=== PATIENT | female | born 1975 | race Caucasian/White ===

== ENCOUNTER 2016-11-24 06:11 | Day surgery (SDC) | payer OTHER ==
[~2016-11-24] VITALS: Ht 170.2 cm; Wt 104.3 kg
--- NOTE | ~2016-11-24 | O ---
[facility] [place] [address] OPERATIVE REPORT Name: ROLAN GONZALES Room #: 427-P [facility]#: [id number] Admission: 11/24/16 Attend Phys: Stephen Peralta MD Discharge: Date of : 71 Report #: [id number] THIS REPORT FOR: //name// CC: Krystyna Peralta DATE OF SERVICE: 11/24/2016 PREOPERATIVE DIAGNOSIS: Chronic incarcerated incisional hernia. POSTOPERATIVE DIAGNOSES: Complex multiple incisional hernia with incarceration of transverse colon and intra-abdominal adhesions. PROCEDURES PERFORMED: Laparoscopic repair of incarcerated incisional hernia. ANESTHESIA: General. SURGEON: Stephen Peralta M.D. COMPLICATIONS: None. ESTIMATED BLOOD LOSS: 20 mL. PROCEDURE NOTE: With the patient under general anesthesia, a Keith catheter was placed, IV antibiotic was administered. Abdomen was prepped and draped in sterile fashion. A sterile Vi-Drape was used. A cutdown incision was made in the left abdomen. This is along the lateral edge of the rectus muscle. Incision was carried down to the anterior rectus sheath, this was soon identified and incised, it was difficult to reach because of the depth, but this was able to be opened under visualization, 0 Vicryl suture placed on the fascia edges. With the fascia lifted anteriorly, muscle was spread. The posterior sheath was then able to be identified and grasped. The posterior sheath was opened and stay sutures was placed on the posterior sheath. Veress needle was then placed through peritoneum. Abdominal cavity was insufflated by CO2. After creating pneumoperitoneum pressure of 15, an 11 mm trocar was placed under visualization. This had a balloon tip. This was placed into the pneumoperitoneum without difficulty. Under visualization, a 5 mm trocar was placed in the left upper quadrant laterally. A second 5 mm trocar was placed in the left lower quadrant lateral to the inferior epigastric vessels. The inferior epigastric vessel was preserved from harm. Right adjacent to the trocars, there are omental adhesions. These omental adhesions were taken down. I can see the colon draping transverse colon coming up into the wall and care was taken to avoid the colon. The adhesions were taken lateral superior inferiorly from the hernia that contained the colon and this is the larger defect, there were multiple smaller defects found. This is a [place] cheese abdominal wall. The colon was able to be mobilized out of the hernia sac and [facility] [address] [place] [address] OPERATIVE REPORT Name: ROLAN GONZALES Room #: 427-P [facility]..#: [id number] Admission: 11/24/16 Attend Phys: Stephen Peralta MD Discharge: Date of : 71 Report #: [id number] then brought back down. A Harmonic scalpel was used for the dissection and when I got closer to the colon, a scissor was used to dissect the adhesions down to avoid using any energy instrument. Once the omentum was taken down, the colon was then from the wall and able to be taken off the hernia sac without difficulty. The colon was visualized. There was no harm to the colon. The entire abdominal wall was opened very right lateral abdomen. Also, the liver was stuck, the medial aspect of the liver was stuck and I did not try to free that up. The defect was measured and measured about 15 cm, again multiple defects were found through the wall with two larger one's in the mid abdomen. A Ventralight ST mesh was used with echo technology. It showed the 7 x 9 inch, which is 17 x 22 cm. The balloon trocar was removed. The Ventralight was then placed through the abdominal wall opening here and the cutdown side. The mesh opened up well. A suture retrieval was placed that the midpoint of the fascial defect and the balloon tubing was brought out. The balloon channel of the echo was then inflated. This allowed the mesh to open up. The mesh was then seated properly, the mesh was then seated well covering the entire defect and extended laterally from it, the distance inferior is about 4 cm between the edge to the defect. This was below the umbilicus, about an inch and a half below the umbilicus. The mesh was tacked with SorbaFix. A 30 and then a 15 SorbaFix was used. I went ahead and placed a two 5 mm trocar in the right abdomen. These were placed under visualization. This allowed me to tack the left side of the mesh. Transfascial sutures were then placed at the 12, 3, 6, 9 o'clock position. The [place]-Lance suture was used. A suture retrieval needle was used to go through the skin and then through the abdominal wall. This was grabbed one into the stitch and then this same needle was placed through the same skin incision through a different part of the abdominal wall and through the mesh and the other end of the suture was brought out and the knot was tied. The other positions were done exact same manner. The patient tolerated procedure well. The procedure was then terminated. The omentum is dry. The CO2 was evacuated. Trocars removed with evacuation of CO2 as much as possible. At the cutdown side, the posterior sheath was closed with [id number] 0 PDS. The anterior fascia defect was closed with [id number] 0 PDS x 3. Skin was irrigated. Skin was closed with 5-0 PDS subcuticular fashion. The skin was brought further together with Dermabond at all the incision sites and all of the transfascial suture sites. Band-Aids were applied. The patient was awakened and taken to recovery room. By: [id number] Stephen Peralta MD /nt
--- NOTE | ~2016-11-24 | H ---
[facility] [place] [address] HISTORY AND PHYSICAL Name: ROLAN GONZALES Room #: PRE [facility]#: [id number] Admission: Attend Phys: Stephen Peralta MD Discharge: Date of : 71 Report #: [id number] THIS REPORT FOR: //name// CC: Krystyna Peralta PREOPERATIVE DIAGNOSIS: Multiple incisional hernias, here for repair. HISTORY OF PRESENT ILLNESS: The patient is a 41-year-old who noticed a lump in the abdomen a few months ago. In the last 6 weeks, it has become larger and more uncomfortable. 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 The patient underwent a modified Whipple procedure in [place] in 2010. This was performed through the upper midline incision. Unfortunately, the patient is still having symptoms of pancreatitis. The current discomfort is different. It is located more on the left side of the midline, associated with nausea. No vomiting, no bloating. The pain comes and goes. The symptoms are noticeable when she sits up for too long or if she lies down for too long, she has to get up and pace around. She does feel gurgling in the abdomen with the bulges. No cramping, bubbly feeling. The patient did try using a binder, but that made her nausea worse. Her bowels are not changed. The patient was evaluated by Dr. Krystyna Ziegler and had a CT performed. CT scan shows the pancreas and peripancreatic tissue appearing normal. She has incisional hernia in the midline, slightly left to the midline. It measures 4.6 x 5.3 x 6.1 cm. There is transverse colon herniated through this. The colon is not inflamed looking. There is another hernia, more cephalad and measures 2.6 x 2.5 cm. The patient is recommended to undergo repair of the incisional hernias since she is symptomatic. PAST MEDICAL HISTORY: Chronic pancreatitis, migraine headache and borderline diabetes. PAST SURGICAL HISTORY: Appendectomy in 2000, gallbladder in 2010, ERCP stent, bile duct stent and modified Whipple in 2010. MEDICATIONS: Phenergan, methadone 60 mg 3 times a day and iron. ALLERGIES: She is not allergic to anything. FAMILY HISTORY: Diabetes and migraine, also abdominal issues. SOCIAL HISTORY: The patient is disabled from her bouts of pancreatitis. She does not smoke or drink. REVIEW OF SYSTEMS: No chest pain, shortness of breath or palpitation. PHYSICAL EXAMINATION: [address] [address] HISTORY AND PHYSICAL Name: ROLAN GONZALES Room #: PRE [facility]..#: [id number] Admission: Attend Phys: Stephen Peralta MD Discharge: Date of : 71 Report #: [id number] GENERAL: The patient is obese. The patient is alert and oriented. No acute distress. HEENT: Pupils react to light. Sclerae are nonicteric. NECK: Soft and supple. No masses. No JVD. LUNGS: Clear to auscultation. HEART: Regular rate and rhythm. No murmur or gallop. ABDOMEN: Soft and nondistended. She has an upper midline incision. At the lower end of the incision, there is a large-sized hernia. It is soft, but not totally reducible. Not tender to palpation. I believe there is a second defect slightly superior to this area. It is difficult to feel. No guarding, rigidity or rebound. EXTREMITIES: No cyanosis, clubbing or edema. IMPRESSION AND PLAN: The patient is a 41-year-old with a symptomatic incisional hernia. There appears to be 2 defects. There larger defect contains a loop of transverse colon. This is worrisome. Repair is recommended. She is symptomatic. Laparoscopic approach is recommended. We will come in from the left side. The procedure was discussed in detail and the use of mesh was discussed. Risk of bleeding and infection was discussed. Lysis of adhesions was discussed. The risk of hurting the intestine during lysis of adhesions was discussed. The patient understands the risks involved and wishes to proceed. The use of mesh with repair was discussed. Postoperative pain was discussed. Mesh infection was discussed. By: [id number] Stephen Peralta MD /nt
--- NOTE | ~2016-11-24 | EKG ---
[address] [address] ELECTROCARDIOGRAM REPORT Name: ROLAN GONZALES Room #: 150-3 [facility]#: [id number] Admission: 11/24/16 Attend Phys: Stephen Peratla MD Discharge: Date of : 71 Report #: [id number] THIS REPORT FOR: //name// [facility] Test Date: 2016-11-24 Test Time: 07:06:18 Pat Name: ORLAN GONZALES Department: Room: 150 3 Gender: F [employer] Worker: SCAR : 1975 Requested By: Stephen Peralta Order Number: [id number] MD: Eliazar Macias Measurements Intervals [place] Rate: 91 P: 51 OK: 166 QRS: 12 QRSD: 98 T: 17 QT: 367 QTc: 452 Interpretive Statements Sinus rhythm No significant abnormality Compared to ECG 02/20/2014 18:33:43 Sinus tachycardia no longer present Electronically Signed On 11-24-2016 7:45:22 CDT by Eliazar Macias [email or web address] <ELECTRONICALLY SIGNED> By: Eliazar Macias MD, [facility] 11/24/16 0745 5 5 Eliazar Macias MD, [facility] /EPI
[~2016-11-24 06:11] MED LIST: CARAFATE 11 GM/10 M1 PO; IRON18 M1 PO; METFORMIN HCL500 M2 PO; METHADONE HCL 110 M1 PO; METHADONE HCL40 MG PO; NOHOMEMEDICATIONS; NORCO 5-325 TA1 EACH PO; ONDANSETRON HCL4 M2 PO; PHENERGAN50 MG/1 M1 SUBQ; PRILOSEC 20 MG20 MG PO; PRILOSEC OTC20 MG PO; ZOFRAN ODT4 MG PO; ZOFRAN4 MG PO
[2016-11-24 07:26] LABS: HEMATOCRIT 33.7 % (37.0-47.0); HEMOGLOBIN 11.1 gm/dL (12.0-15.0); MCH 26.4 pg (26.0-34.0); MCHC 32.8 g/dL (28.0-37.0); MCV 80.6 fL (80.0-100.0); RBC 4.18 mil/uL (4.20-5.00); RDW 14.7 % (10.5-14.5); WBC 5.9 thou/uL (4.0-11.0)
[2016-11-24 08:00] VITALS: BP 150/91
[2016-11-24 15:30] VITALS: BP 129/89
[2016-11-24 16:00] VITALS: BP 143/91
[2016-11-24 16:30] VITALS: BP 161/92
[2016-11-24 19:59] VITALS: BP 155/89
[2016-11-24 23:46] VITALS: BP 121/75
[2016-11-25 04:19] VITALS: BP 137/87
[2016-11-25 06:07] LABS: HEMOGLOBIN 10.7 gm/dL (12.0-15.0); MCH 26.6 pg (26.0-34.0); MCHC 32.4 g/dL (28.0-37.0); RBC 4.02 mil/uL (4.20-5.00); RDW 14.8 % (10.5-14.5); WBC 8.6 thou/uL (4.0-11.0)
[2016-11-25 06:17] LABS: CREATININE 0.8 mg/dL (0.6-1.0); POTASSIUM 3.2 mmol/L (3.5-5.1)
[2016-11-25 15:50] VITALS: BP 122/78
[2016-11-25 16:31] VITALS: BP 122/78
[2016-11-25 20:42] VITALS: BP 139/95
[2016-11-26 00:10] VITALS: BP 127/82
[2016-11-26 05:42] VITALS: BP 139/93
[2016-11-26 05:50] LABS: CALCIUM 8.3 mg/dL (8.5-10.1); CREATININE 0.8 mg/dL (0.6-1.0); POTASSIUM 4.2 mmol/L (3.5-5.1)
[2016-11-26 07:24] VITALS: BP 123/73
[2016-11-26 15:40] VITALS: BP 113/70
[2016-11-26 21:17] VITALS: BP 104/65
[2016-11-27 04:03] VITALS: BP 119/77
[2016-11-27 07:15] VITALS: BP 1123/78
[2016-11-27] MEDS ORDERED: PERCOCET PO (11:13)
[2016-11-27] MEDS ORDERED: VALIUM5 MG PO (11:14)
[2016-11-27 11:34] VITALS: BP 1123/78
== END 2016-11-27 13:59 | disposition home or self-care (01) ==
LOC: OR 06:11 → 4E 06:11 → TBA 06:12 → OR 12:31 → 4E 15:46 → OR 11-27 13:59
PROVIDERS: Surgery
DX: K43.0 Incisional hernia with obstruction, without gangrene (principal); K66.0 Peritoneal adhesions (postprocedural) (postinfection); G43.909 Migraine, unspecified, not intractable, without status migrainosus; K86.1 Other chronic pancreatitis; K86.81 Exocrine pancreatic insufficiency; Z90.49 Acquired absence of other specified parts of digestive tract; Z88.8 Allergy status to other drugs, medicaments and biological substances; Z98.890 Other specified postprocedural states
CPT/HCPCS: 50010; 50101; 50249; 50386; 50455; 50555; 50687; 50848; 50857; 50886; 51489; 53065; 53307; 53310; 53335; 54022; 54118; 56462; 56525; 56526; 56530; 62110; 62900; 70005